=== PATIENT | female | born 1985 | race Hispanic/Latino ===

== ENCOUNTER 2024-11-07 11:57 | Day surgery (SDC) | payer OTHER ==
[2024-11-07] MEDS ORDERED: hydrALAZINE 20 MG/ML VIAL SLOW IVP PRN (12:13)
[2024-11-07 12:33] VITALS: BMI 43.0
[2024-11-07 12:48] LABS: Glucose, Urine (Dipstick) Normal (Negative); Leukocyte Negative (Negative); Protein, Urine (Dipstick) 30 mg/dl (Neg-Trace); Specific Gravity, Urine 1.010 (1.005-1.030)
[2024-11-07 12:50] LABS: #Basophils 0.03 10x3/uL (0.0-0.2); #Eosinophils 0.10 10x3/uL (0.0-0.5); #Monocytes 0.54 10x3/uL (0.0-1.1); #Neutrophils 7.30 10x3/uL (1.5-8.4); %Basophils 0.3 % (0.0-2.0); %Eosinophils 1.0 % (0.0-6.0); %Lymphocytes 16.3 % (18.0-47.0); %Monocytes 5.6 % (0.0-10.0); %Neutrophils 76.1 % (40.0-75.0); Hematocrit 33.1 % (34.9-44.5); Hemoglobin 11.0 g/dL (12.0-15.5); Mean Corpuscular Hemoglobin 29.3 pg (27.0-33.0); Mean Corpuscular Volume 88.3 fL (81.6-98.3); Platelet Count 214 10x3/uL (150-450); Red Blood Cell (RBC) Count 3.75 10x6/uL (3.90-5.03); White Blood Cell (WBC) Count 9.60 10x3/uL (3.5-10.5)
[2024-11-07 12:59] LABS: Bacteria/HPF 2+ HPF (None Seen); CAUTI Indications for Culture Pregnancy; RBC/HPF 0-3 HPF (0-3); WBC/HPF 0-3 HPF (0-3)
[2024-11-07 13:00] LABS: Urine Culture Reflex Yes Yes
[2024-11-07 13:07] LABS: ALT (SGPT) 15 U/L (Less than 34); AST (SGOT) 29 U/L (11-34); Albumin 3.2 g/dL (3.1-4.5); Alkaline Phosphatase 125 U/L (40-110); Anion Gap 13 mmol/L (10-20); BUN (Urea Nitrogen) 8 mg/dL (7.0-18.7); Bilirubin, Total 0.3 mg/dL (0.3-1.2); Calc. Creatinine Clearance 173 mL/min (70-130); Calcium 8.5 mg/dL (7.8-10.44); Carbon Dioxide 19 mmol/L (22-29); Chloride 108 mmol/L (98-107); Globulin 3.7 g/dL (2.4-3.5); Glucose 108 mg/dL (70-105); Potassium 4.1 mmol/L (3.5-5.1); Sodium 136 mmol/L (136-145)
[2024-11-07] MEDS: Fluconazole 100 MG TAB PO SCH (15:26)
== END 2024-11-07 15:30 | disposition home or self-care (01) ==
LOC: CSHLD/OP 11:57
PROVIDERS: ATTEND Obstetrics & Gynecology
DX: O47.1 False labor at or after 37 completed weeks of gestation (principal); O23.593 Infection of other part of genital tract in pregnancy, third trimester; N89.8 Other specified noninflammatory disorders of vagina; O98.813 Other maternal infectious and parasitic diseases complicating pregnancy, third trimester; B37.9 Candidiasis, unspecified; O09.523 Supervision of elderly multigravida, third trimester; O99.213 Obesity complicating pregnancy, third trimester; O34.211 Maternal care for low transverse scar from previous cesarean delivery; Z3A.38 38 weeks gestation of pregnancy; Z79.899 Other long term (current) drug therapy
CPT/HCPCS: 80053; 81001; 85025; 87086; 87480; 87510; 87660; 96360; 96361; 99285

== ENCOUNTER 2024-11-22 09:33 | Inpatient (IN) | payer MEDICAID, OTHER, SELFPAY ==
[2024-11-22] MEDS ORDERED: Carboprost 250 MCG/ML AMP IM PRN (10:29)
[2024-11-22] MEDS ORDERED: hydrALAZINE 20 MG/ML VIAL SLOW IVP PRN ×2 (10:29→13:12)
[2024-11-22] MEDS ORDERED: Diphenoxylate HCl/Atropine Tablet PO PRN ×2 (10:29)
[2024-11-22] MEDS ORDERED: Ondansetron PF 4 MG/2 ML Vial IVP PRN ×2 (10:29→10:58)
[2024-11-22] MEDS ORDERED: Methylergonovine 0.2 MG/ML VIAL IM PRN (10:29)
[2024-11-22] MEDS ORDERED: Acetaminophen 500 MG TAB PO PRN (10:29)
[2024-11-22] MEDS ORDERED: Bicitra 30 ML UDCUP PO PRN (10:29)
[2024-11-22] MEDS ORDERED: Tranexamic Acid 1,000 MG/10 ML VIAL IVP PRN (10:29)
[2024-11-22] MEDS ORDERED: Oxytocin 30 units/NS 500 ML 500 ML IV SCH (10:30)
[2024-11-22 10:43] LABS: Hematocrit 35.2 % (34.9-44.5); Hemoglobin 11.9 g/dL (12.0-15.5); Mean Corpuscular Hemoglobin 29.7 pg (27.0-33.0); Mean Corpuscular Volume 87.8 fL (81.6-98.3); Platelet Count 198 10x3/uL (150-450); Red Blood Cell (RBC) Count 4.01 10x6/uL (3.90-5.03); White Blood Cell (WBC) Count 9.62 10x3/uL (3.5-10.5)
[2024-11-22] MEDS ORDERED: diphenhydrAMINE 50 MG/ML VIAL IVP PRN (10:58)
[2024-11-22] MEDS ORDERED: Meperidine HCl/PF 25 MG (1 mL) VIAL SLOW IVP PRN (10:58)
[2024-11-22] MEDS: Famotidine/PF 20 mg/2ml Vial SLOW IVP PRN (10:58)
[2024-11-22] MEDS ORDERED: Communication Order-Pharmacy FS SCH (11:00)
[2024-11-22 11:09] LABS: Hep B Surf Ag - L&D Non-Reactive S/CO (NonReactive); Syphilis Antibody Index 0.07 S/CO (<1.00 Non-Reactive)
[2024-11-22 13:07] VITALS: BMI 35.2
[2024-11-22] MEDS ORDERED: Boostrix 0.5 ML (Tdap) VIAL (>/=7 yrs of age) IM ONE (13:12)
[2024-11-22] MEDS ORDERED: Acetaminophen 325 MG TAB PO PRN (13:12)
[2024-11-22] MEDS ORDERED: Lanolin Ointment 7 GM TUBE TOP PRN (13:12)
[2024-11-22 13:17] LABS: Analyzer IN Cardio CS NICU; Critical Notified By: Udy, RRT; Critical Notified Whom: Williamson, L&D RN; RapidComm Collect By Williamson, L&D RN
[2024-11-22 13:18] LABS: Analyzer IN Cardio CS NICU; Critical Notified By: Udy, RRT; Critical Notified Whom: Williamson, L&D RN; RapidComm Collect By Williamson, L&D RN; pH (Cord, venous) 7.353 (7.250-7.350)
[2024-11-22] MEDS: Ondansetron PF 4 MG/2 ML Vial IVP PRN (16:04)
[2024-11-22] MEDS: Methylergonovine 0.2 MG/ML VIAL ONE (17:07)
[2024-11-22] MEDS: Carboprost 250 MCG/ML AMP ONE (17:07)
[2024-11-22] MEDS: Ketorolac Tromethamine 30 MG (1 mL) VIAL ONE (17:08)
[2024-11-22] MEDS: Tranexamic Acid 1,000 MG/10 ML VIAL ONE (17:08)
[2024-11-22] MEDS: CEFAZOLIN 2 GM VIAL ONE (17:08)
[2024-11-22] MEDS: Famotidine/PF 20 mg/2ml Vial ONE (17:08)
[2024-11-22] MEDS: Ondansetron PF 4 MG/2 ML Vial ONE (17:09)
[2024-11-22] MEDS: Oxytocin 10 UNITS/ML VIAL ONE ×2 (17:09→17:10)
[2024-11-22] MEDS: Phenylephrine 40 MG/NS 250 ML 250 ML ONE (17:09)
[2024-11-22] MEDS: PHENYLEPHRINE-NS 100 MCG/ML 10 ML SYRINGE ONE (17:09)
[2024-11-23] MEDS ORDERED: HYDROcodone/Acetaminophen 7.5/325 mg Tablet PO PRN
[2024-11-23] MEDS: Ferrous Sulfate 325 MG TAB PO SCH (03:52)
[2024-11-23 04:18] LABS: Hematocrit 29.7 % (34.9-44.5); Hemoglobin 10.0 g/dL (12.0-15.5); Mean Corpuscular Hemoglobin 29.9 pg (27.0-33.0); Mean Corpuscular Volume 88.7 fL (81.6-98.3); Platelet Count 174 10x3/uL (150-450); Red Blood Cell (RBC) Count 3.35 10x6/uL (3.90-5.03); White Blood Cell (WBC) Count 12.16 10x3/uL (3.5-10.5)
[2024-11-23] MEDS: Acetaminophen 325 MG TAB PO SCH (07:53)
[2024-11-23] MEDS: Ketorolac Tromethamine 30 MG (1 mL) VIAL IVP SCH (08:41)
[2024-11-23] MEDS ORDERED: Ibuprofen 800 MG TAB PO SCH ×2 (14:00→22:00)
[2024-11-23] MEDS: Ketorolac Tromethamine 30 MG (1 mL) VIAL IVP PRN (14:33)
[2024-11-23] MEDS: Ibuprofen 800 MG TAB PO SCH (21:22)
[2024-11-23] MEDS: Simethicone Chewable 80 MG TAB PO PRN (21:23)
[2024-11-24 11:56] VITALS: BP 120/78; TEMP 98.6
[2024-11-24] MEDS: Measles/Mumps/Rubella 10 MCG/0.5 ML VIAL SC ONE (13:58)
== END 2024-11-24 14:30 | disposition home or self-care (01) | DRG 787 ==
LOC: CSHLD 09:33 → CSHPP 16:29
PROVIDERS: ADMIT Obstetrics & Gynecology; ATTEND Obstetrics & Gynecology
PROC: 10D00Z1 Extraction of Products of Conception, Low, Open Approach (ICD-10-PCS; principal; 2024-11-22)
DX: O34.211 Maternal care for low transverse scar from previous cesarean delivery (principal); D62 Acute posthemorrhagic anemia; O99.214 Obesity complicating childbirth; Z37.0 Single live birth; Z3A.39 39 weeks gestation of pregnancy; N73.6 Female pelvic peritoneal adhesions (postinfective); O99.02 Anemia complicating childbirth; O75.89 Other specified complications of labor and delivery
CPT/HCPCS: 36415; 51702; 82805; 85027; 86780; 86850; 86900; 86901; 87340; 90707; J1308; J1885; J2274; J2405; J2590; Q9968